=== PATIENT | female | born 1990 | race Caucasian/White ===

== ENCOUNTER 2017-10-11 14:30 | Emergency (ER) | payer BC, OTHER ==
[2017-10-11 14:39] VITALS: TEMP 97.7; BMI 21.1
--- NOTE | 2017-10-11 15:07 | PDOC ---
Attending Attestation - Resident Resident Name: Dilip Camacho - HPI HPI: 10/11/17 15:56 Pt presents to the ED complaining of syncope x 2 that occurred two days ago, along with generalized malaise. Patient also has two episodes of vomiting. Presented to an urgent care this AM for the same complaint and told to come to the ED because she had bradycardia. Patient now has no complaints. 10/11/17 16:07 - Physicial Exam PE: 10/11/17 16:08 Agree with resident exam. patient is well appearing and in no acute distress. Abdomen is non tender. - Medical Decision Making 10/11/17 16:09 Pt presents to the ED complaining of syncope two days ago. initial differential included anemia, ectopic , dehydration. Labs are within normal limits and u preg is negative. EKG shows sinus bradycardia, but patient is normotensive and asymptomatic. No signs of brugada or other abnormalities on EKG.
[2017-10-11] MEDS ORDERED: SODIUM CHLORIDE 1,000 ML IV STA (15:08)
--- NOTE | 2017-10-11 15:08 | PDOC ---
History of Present Illness - General Chief Complaint: Syncope/Near Syncope Stated Complaint: EKG ABMORMAL Time Seen by Provider: 10/11/17 14:44 - History of Present Illness Initial Comments: 10/11/17 15:05 27F with pmh of mitral valve prolapse and VSD, endometriosis s/p resection in left pelvic muscles and cul-de-sac in Summer 2016, and interstitial cystitis presents to the ED after she complaints of syncopal episode in the middle of the night on Thursday after which she were she woke up on the floor with vomit. Multiple episodes of vomiting and diarrhea after that, spent the rest of the day in bed. Went to [facility] this morning, EKG showed bradycardia (patient doesn't know her baseline) and was sent to ER was evaluation. Patient currently on her period but denies heavy menses. 10/11/17 15:09 10/11/17 16:09 Past History - Past Medical History Allergies/Adverse Reactions: Allergies Allergy/AdvReac Type Severity Reaction Status Date / Time No Known Drug Intolerances Allergy Verified 10/11/17 14:38 Home Medications: Ambulatory Orders Ascorbic Acid [Vitamin C -] 1,000 mg PO DAILY 12/10/15 Krill Oil 500 mg PO DAILY 12/10/15 L.acidoph,Paracasei, B.lactis [Probiotic] 1 each PO DAILY 12/10/15 Multivitamins [Tab-A-Vit -] 1 tab PO DAILY 12/10/15 Tumeric 1 tab PO DAILY 12/10/15 Anemia: No Asthma: No Cancer: No Cardiac Disorders: No (mvp) CVA: No COPD: No CHF: No Dementia: No Diabetes: No GI Disorders: No Disorders: No HTN: No Hypercholesterolemia: No Liver Disease: No Seizures: No Thyroid Disease: No Other medical history: ENDOMETRIOSIS - Surgical History Appendectomy: Yes - Immunization History Immunization Up to Date: Yes - Suicide/Smoking/Psychosocial Hx Smoking Status: No Smoking History: Never smoked Number of Cigarettes Smoked Daily: 0 Hx Alcohol Use: Yes (SOCIAL) Drug/Substance Use Hx: No Substance Use Type: None Cardiac Specific PMH - Complaint Specific PMHX Pacemaker: No Review of Systems - Review of Systems Able to Perform ROS?: Yes Is the patient limited [place] proficient: No Constitutional: No: Symptoms Reported HEENTM: No: Symptoms Reported Respiratory: No: Symptoms reported Cardiac (ROS): No: Symptoms Reported ABD/GI: No: Symptoms Reported : No: Symptoms Reported Musculoskeletal: No: Symptoms Reported Integumentary: No: Symptoms Reported Neurological: No: Symptoms reported Hematologic/Lymphatic: No: Symptoms Reported *Physical Exam - Vital Signs Last Vital Signs Temp Pulse Resp BP Pulse Ox 97.7 F 64 20 146/77 99 10/11/17 14:35 10/11/17 14:35 10/11/17 14:35 10/11/17 14:35 10/11/17 14:35 - Physical Exam General Appearance: Yes: Nourished, Appropriately Dressed. No: Apparent Distress HEENT: positive: EOMI, BAN, Normal ENT Inspection Neck: negative: Tender Respiratory/Chest: positive: Lungs Clear, Normal Breath Sounds. negative: Chest Tender Cardiovascular: positive: Regular Rhythm, Bradycardia Vascular Pulses: Dorsalis-Pedis (R): 2+, Doralis-Pedis (L): 2+ Gastrointestinal/Abdominal: positive: Normal Bowel Sounds, Tender (at site of endometriosis), Flat, Soft Musculoskeletal: positive: Normal Inspection. negative: CVA Tenderness Neurologic: positive: Fully Oriented, Alert, Normal Mood/Affect ED Treatment Course - LABORATORY CBC & Chemistry Diagram: 10/11/17 15:15 10/11/17 15:15 - ADDITIONAL ORDERS Additional order review: Laboratory Results 10/11/17 10/11/17 15:15 15:10 Sodium 141 Potassium 3.5 Chloride 104 Carbon Dioxide 25 Anion Gap 12 BUN 12 Creatinine 0.6 Creat Clearance w eGFR > 60 Random Glucose 84 Calcium 8.9 Total Bilirubin 0.3 AST 37 ALT 52 Alkaline Phosphatase 51 Total Protein 7.1 Albumin 4.1 Urine Color Yellow Urine Appearance Clear Urine pH 5.0 Ur Specific [place] 1.023 Urine Protein 1+ H Urine Glucose (UA) Negative Urine Ketones Trace H Urine Blood 2+ H Urine Nitrite Negative Urine Bilirubin Negative Urine Urobilinogen Negative Urine HCG, Qual Negative 10/11/17 15:15 RBC 4.17 MCV 93.8 MCHC 33.7 RDW 13.3 MPV 7.7 Neutrophils % 66.2 Lymphocytes % 28.2 Monocytes % 5.2 Eosinophils % 0.2 Basophils % 0.2 - Medications Given in the ED: ED Medications Discontinued Medications Generic Name Dose Route Start Last Admin Trade Name Freq PRN Reason Stop Dose Admin Sodium Chloride 1,000 mls @ 1,000 mls/hr 10/11/17 15:08 10/11/17 15:22 Normal Saline - IV 10/11/17 16:07 1,000 mls/hr ASDIR STA Administration Medical Decision Making - Medical Decision Making 10/11/17 16:11 Bradicardia on EKG likely physiological as patient is an athlete.(crossfit and basketball) All labs wnl and negative. Given NS to replenish fluids. Likely viral gastroenteritis D/C with follow up 10/11/17 16:11 *DC/Admit/Observation/Transfer Diagnosis at time of Disposition: Viral gastroenteritis - Discharge Dispostion Disposition: HOME Condition at time of disposition: Improved Admit: No - Referrals Referrals: Ismael Cartagena MD [Primary Care Provider] - - Patient Instructions Printed Discharge Instructions: DI for Syncope in Adults (Fainting), Crohn's Disease (Alternative Therapy), Gastroenteritis Diet Additional Instructions: Come back to Emergency Department for any new, worsening or concerning symptoms. - Post Discharge Activity
[2017-10-11 15:25] LABS: BASO % 0.2 % (0-2.0); EOS % 0.2 % (0-4.5); HEMATOCRIT 39.1 % (32.4-45.2); HEMOGLOBIN 13.2 GM/dL (10.7-15.3); LYMPH % 28.2 % (8-40); MCH 31.6 pg (25.7-33.7); MCHC 33.7 g/dl (32.0-36.0); MEAN CELL VOLUME 93.8 fl (80-96); MEAN PLT VOLUME 7.7 fl (7.5-11.1); MONO % 5.2 % (3.8-10.2); NEUT % 66.2 % (42.8-82.8); PLATELET COUNT 257 K/MM3 (134-434); RBC 4.17 M/mm3 (3.60-5.2); RDW 13.3 % (11.6-15.6); WHITE BLOOD COUNT 5.4 K/mm3 (4.0-10.0)
[2017-10-11 15:30] LABS: URINE APPEARANCE CLEAR; URINE BILIRUBIN NEGATIVE (NEGATIVE); URINE BLOOD 2+ (NEGATIVE); URINE COLOR YELLOW; URINE GLUCOSE (UA) NEGATIVE (NEGATIVE); URINE KETONE TRACE (NEGATIVE); URINE LEUK ESTERASE NEGATIVE (NEGATIVE); URINE NITRITE NEGATIVE (NEGATIVE); URINE UROBILINOGEN NEGATIVE mg/dL (0.2-1.0)
[2017-10-11 15:33] LABS: HCG,QUALITATIVE URINE NEGATIVE
[2017-10-11 15:43] LABS: URINE PROTEIN 1+ (NEGATIVE)
--- NOTE | 2017-10-11 15:48 | EKG ---
Test Reason : Blood Pressure : / mmHG Vent. Rate : 058 BPM Atrial Rate : 058 BPM P-R Int : 160 ms QRS Dur : 084 ms QT Int : 408 ms P-R-T Axes : 061 050 047 degrees QTc Int : 400 ms SINUS BRADYCARDIA OTHERWISE NORMAL ECG WHEN COMPARED WITH ECG OF 24-JUN-2010 11:44, NO SIGNIFICANT CHANGE WAS FOUND Confirmed by AALIYAH WHITNEY MD ([id number]) on 10/11/2017 3:48:24 PM Referred By: Confirmed By:AALIYAH WHITNEY MD
[2017-10-11 15:55] LABS: ALBUMIN 4.1 g/dl (3.4-5.0); ALK PHOS 51 U/L (45-117); ANION GAP 12 (8-16); BILIRUBIN,TOTAL 0.3 mg/dL (0.2-1.0); BLOOD UREA NITROGEN 12 mg/dL (7-18); CALCIUM 8.9 mg/dL (8.5-10.1); CHLORIDE 104 mmol/L (98-107); CO2 25 mmol/L (21-32); CREATININE 0.6 mg/dL (0.55-1.02); GLUCOSE,RANDOM 84 mg/dL (74-106); POTASSIUM 3.5 mmol/L (3.5-5.1); SGOT/AST 37 U/L (15-37); SGPT/ALT 52 U/L (12-78); SODIUM 141 mmol/L (136-145); TOT PROT 7.1 g/dl (6.4-8.2)
[2017-10-11 16:35] VITALS: BP 111/62; PULSE 56
== END 2017-10-11 16:36 | disposition home or self-care (01) ==
LOC: JER 14:30
PROC: 3E0337Z Introduction of Electrolytic and Water Balance Substance into Peripheral Vein, Percutaneous Approach (ICD-10-PCS; principal; 2017-10-11)
DX: A08.4 Viral intestinal infection, unspecified (principal); B97.89 Other viral agents as the cause of diseases classified elsewhere; R00.1 Bradycardia, unspecified
CPT/HCPCS: 36415; 80053; 81003; 81015; 84703; 85025; 93005; 93010; 99283-25